=== PATIENT | male | born 1950 | race Caucasian/White ===

== ENCOUNTER 2016-12-13 21:55 | Emergency (ER) | payer OTHER ==
[2016-12-13] MEDS ORDERED: HYDROcodone/Acetaminophen 10/325 mg Tablet ONE (22:43)
[2016-12-13] MEDS ORDERED: Ibuprofen 800 MG TAB ONE (22:43)
--- NOTE | 2016-12-14 06:22 | RAD ---
RIGHT WRIST THREE VIEWS 12/13/2016 No fracture was seen. There is some narrowing of the joint space between the scaphoid and the trape zium and trapezoid signifying a little degenerative change. There may even be a slight amount of de formity to the distal pole suggesting there could have been old trauma here. The metacarpals all ap peared intact. The distal radius and ulna showed no acute findings. IMPRESSION: No acute findings. Possible mild degenerative change between the scaphoid and distal row of carpals . POS: HOME
== END 2016-12-13 23:19 | disposition home or self-care (01) ==
LOC: BURERS 21:55
DX: M25.531 Pain in right wrist (principal); E11.9 Type 2 diabetes mellitus without complications; I10 Essential (primary) hypertension; Z79.84 Long term (current) use of oral hypoglycemic drugs; Z79.899 Other long term (current) drug therapy
CPT/HCPCS: 99283

== ENCOUNTER 2019-04-02 12:27 | Emergency (ER) | payer OTHER ==
--- NOTE | 2019-04-02 13:04 | RAD ---
CHEST 2 VIEWS: Date: 04/02/19 Comparison made with the 11/19/[address] [facility]. FINDINGS: The heart is normal in size and the lungs are clear. There is no pneumothorax, pleural effusion, or f ocal pulmonary infiltrate. The mediastinum shows no widening or shift. Median sternotomy sutures are seen from prior surgery. Mild irregularity of the right 7th rib posteriorly is an old finding and was present 2 years ago. No acute fractures were appreciated. IMPRESSION: No acute thoracic finding. POS: HOME
== END 2019-04-02 13:05 | disposition home or self-care (01) ==
LOC: BURERS 12:27
DX: S20.212A Contusion of left front wall of thorax, initial encounter (principal); E11.9 Type 2 diabetes mellitus without complications; E78.5 Hyperlipidemia, unspecified; I10 Essential (primary) hypertension; Z79.899 Other long term (current) drug therapy; Z79.84 Long term (current) use of oral hypoglycemic drugs; W18.30XA Fall on same level, unspecified, initial encounter
CPT/HCPCS: 71046

== ENCOUNTER 2022-12-07 05:45 | Emergency (ER) | payer MEDICARE ==
[2022-12-07] MEDS ORDERED: Ondansetron PF 4 MG/2 ML Vial ONE (06:14)
[2022-12-07 06:25] LABS: #Basophils 0.1 thou/uL (0.0-0.2); #Eosinphils 0.7 thou/uL (0.0-0.7); #Lymphocytes 1.6 thou/uL (1.20-3.40); #Monocytes 0.6 thou/uL (0.11-0.59); #Neutrophils 4.7 thou/uL (1.40-6.50); %Basophils 1.2 % (0.0-1.0); %Eosinophils 8.8 % (0.0-10.0); %Lymphocytes 21.2 % (21.0-51.0); %Monocytes 8.3 % (0.0-10.0); %Neutrophils 60.5 % (42.0-75.0); Hemoglobin 15.7 g/dL (14.0-18.0); Mean Corpuscular HGB CONC 35.3 g/dL (32.0-36.0); Mean Corpuscular Hemoglobin 31.7 pg (27.0-31.0); Mean Corpuscular Volume 89.9 fl (78.0-98.0); Mean Platelet Volume 8.2 fL (7.4-10.4); Platelet Count 195 10x3/uL (130-400); RBC Distribution Width 11.2 % (11.5-14.5); Red Blood Cell (RBC) Count 4.96 mill/uL (4.70-6.10); White Blood Cell (WBC) Count 7.7 10x3/uL (4.8-10.8)
[2022-12-07 06:31] LABS: PTT 24.1 sec (22.9-36.1); Prothrombin Time 13.9 sec (12.0-14.7)
[2022-12-07 06:39] LABS: ALT (SGPT) 33 U/L (8-55); AST (SGOT) 21 U/L (5-34); Alkaline Phosphatase 55 U/L (40-110); Anion Gap 16 mmol/L (10-20); BUN (Urea Nitrogen) 15 mg/dL (8.4-25.7); Calc. Creatinine Clearance 0 mL/min (70-130); Calcium 8.8 mg/dL (7.8-10.44); Carbon Dioxide 21 mmol/L (23-31); Chloride 106 mmol/L (98-107); Estimated GFR 96; Globulin 2.3 g/dL (2.4-3.5); Glucose 163 mg/dL (83-110); Magnesium 1.5 mg/dL (1.6-2.6); Potassium 3.7 mmol/L (3.5-5.1); Protein, Total 6.3 g/dL (5.8-8.1); Sodium 139 mmol/L (136-145)
[2022-12-07 06:56] LABS: Bilirubin Negative (Negative); Blood, Urine Negative (Negative); Clarity Clear (Clear); Glucose, Urine (Dipstick) Negative (Negative); Ketone, Urine Negative (Negative); Leukocyte Negative (Negative); Nitrite Negative (Negative); Protein, Urine (Dipstick) Negative (Neg-Trace); Urobilinogen 0.2 mg/dL (Less than 2)
[2022-12-07 06:57] LABS: Specific Gravity, Urine 1.026 (1.005-1.030)
[2022-12-07] MEDS ORDERED: Aspirin Chewable 81 MG TAB ONE (07:55)
[2022-12-07] MEDS ORDERED: Clopidogrel Bisulfate 75 MG TAB ONE (16:53)
[2022-12-07] MEDS ORDERED: metFORMIN 850 MG TAB PO SCH (17:45)
[2022-12-07] MEDS ORDERED: Alogliptin 25 MG TAB PO SCH (17:45)
== END 2022-12-07 21:06 | disposition short-term general hospital (02) ==
LOC: BURERS 05:45
DX: R55 Syncope and collapse (principal); R00.1 Bradycardia, unspecified; R42 Dizziness and giddiness; I10 Essential (primary) hypertension; E03.9 Hypothyroidism, unspecified; E11.9 Type 2 diabetes mellitus without complications; Z79.84 Long term (current) use of oral hypoglycemic drugs; Z79.899 Other long term (current) drug therapy
CPT/HCPCS: 70450; 71045; 80053; 81003; 83735; 83880; 84484; 85025; 85610; 85730; 93005; 94760; 96374; J2405

== ENCOUNTER 2025-05-31 10:14 | Emergency (ER) | payer MEDICARE, OTHER ==
[2025-05-31] MEDS ORDERED: Ondansetron PF 4 MG/2 ML Vial ONE (10:43)
[2025-05-31 11:00] LABS: Hematocrit 43.5 % (42.0-52.0); Hemoglobin 15.7 g/dL (14.0-18.0); Mean Corpuscular Hemoglobin 31.5 pg (27.0-31.0); Mean Corpuscular Volume 87.4 fl (78.0-98.0); Platelet Count 249 10x3/uL (130-400); Red Blood Cell (RBC) Count 4.98 mill/uL (4.70-6.10); White Blood Cell (WBC) Count 12.6 10x3/uL (4.8-10.8)
[2025-05-31 11:01] LABS: #Basophils 0.1 thou/uL (0.0-0.2); #Eosinophils 0.5 thou/uL (0.0-0.7); #Lymphocytes 0.5 thou/uL (1.20-3.40); #Monocytes 0.8 thou/uL (0.11-0.59); #Neutrophils 10.7 thou/uL (1.40-6.50); %Basophils 1.2 % (0.0-1.0); %Eosinophils 4.0 % (0.0-10.0); %Lymphocytes 3.9 % (21.0-51.0); %Monocytes 6.3 % (0.0-10.0); %Neutrophils 84.7 % (42.0-75.0)
[2025-05-31 11:14] LABS: ALT (SGPT) 67 U/L (Less than 45); AST (SGOT) 38 U/L (11-34); Albumin 3.8 g/dL (3.1-4.5); Alkaline Phosphatase 101 U/L (40-110); Anion Gap 17 mmol/L (10-20); BUN (Urea Nitrogen) 12 mg/dL (8.4-25.7); Bilirubin, Total 1.2 mg/dL (0.3-1.2); Calc. Creatinine Clearance 0 mL/min (70-130); Calcium 9.3 mg/dL (7.8-10.44); Carbon Dioxide 23 mmol/L (23-31); Chloride 102 mmol/L (98-107); Globulin 3.3 g/dL (2.4-3.5); Glucose 194 mg/dL (83-110); Lipase 72 U/L (8-78); Potassium 4.3 mmol/L (3.5-5.1); Sodium 138 mmol/L (136-145)
[2025-05-31 11:23] LABS: Glucose, Urine (Dipstick) Negative (Negative); Leukocyte Negative (Negative); Protein, Urine (Dipstick) 100 mg/dL (Neg-Trace); Specific Gravity, Urine Greater/Equal 1.030 (1.005-1.030)
[2025-05-31 11:30] LABS: Bacteria/HPF Rare-Few HPF (None Seen); CAUTI Indications for Culture Dysuria,urgency,freq; Mucous/LPF 1+ LPF (<2+); RBC/HPF None Seen HPF (0-3); WBC/HPF 0-3 HPF (0-3)
[2025-05-31 11:31] LABS: Urine Culture Reflex No No
[2025-05-31 12:24] LABS: Troponin I Less than 0.010 ng/mL (< 0.028)
[2025-05-31] MEDS ORDERED: cefTRIAXone (ROCEPHIN) 1 GM VIAL ONE (12:30)
== END 2025-05-31 15:12 | disposition home or self-care (01) ==
LOC: BURERS 10:14
DX: M54.50 Low back pain, unspecified (principal); M54.6 Pain in thoracic spine; J90 Pleural effusion, not elsewhere classified; I10 Essential (primary) hypertension; E11.9 Type 2 diabetes mellitus without complications; Z95.5 Presence of coronary angioplasty implant and graft
CPT/HCPCS: 36415; 71250; 74176; 80053; 81001; 83605; 83690; 83880; 84484; 85025; 93005; 96374; 96375; J0696; J2270; J2405